=== PATIENT | male | born 1950 | race Caucasian/White ===

== ENCOUNTER 2016-07-25 11:50 | Day surgery (SDC) | payer OTHER, MEDICARE ==
--- NOTE | ~2016-07-25 | EGD ---
EGD REPORT [facility] [address] [address] NAME: LAUREL BUSTAMANTE : [birth year] STATUS : REG [place]#: [id number] AGE: 65 ADM/REG DATE : 07/25/16 MR#: [id number] REPORT SERV DATE: 07/25/16 DICTATED BY: KATE FISHER DATE: 07/25/16 REPORT STATUS : Draft [facility]ANS[facility]IBED BY: [facility] DATE: 07/25/16 Endoscopy Center Patient Name: Laurel Bustamante Date of : 1950 Attending MD: KATE FISHER MD Procedure Date No Time: 07/25/2016 Procedure: Upper GI endoscopy Indications: Epigastric abdominal pain, Iron deficiency anemia secondary to chronic blood loss, Melena Referring MD: Kellee ARCHER MD Medicines: Monitored Anesthesia Care Complications: No immediate complications. Procedure: Pre-Anesthesia Assessment: - ASA Grade Assessment: II - A patient with mild systemic disease. After obtaining informed consent, the endoscope was passed under direct vision. Throughout the procedure, the patient's blood pressure, pulse, and oxygen saturations were monitored continuously. The GIF [id number] was introduced through the mouth, and advanced to the jejunum. The upper GI endoscopy was accomplished without difficulty. The patient tolerated the procedure well. Findings: The examined esophagus was normal. S/P gastric bypass Few non-bleeding gastric ulcers were found at the anastomosis. The largest lesion was 7 mm in largest dimension. Biopsies were taken with a cold forceps for histology. The examined jejunum was normal. Impression: - Normal esophagus. - Gastric ulcers with clean base. Biopsied. - Normal examined jejunum. Recommendation: - Patient has a contact number available for emergencies. The signs and symptoms of potential delayed complications were discussed with the patient. Return to normal activities tomorrow. Written discharge instructions were provided to the patient. - Regular diet. - Use Prilosec (omeprazole) 20 mg PO BID.Prescription was written. - Return to GI clinic in 2 months. EGD REPORT [address] [address] NAME: LAUREL BUSTAMANTE : [birth year] STATUS : REG [place]#: [id number] AGE: 65 ADM/REG DATE : 07/25/16 MR#: [id number] REPORT SERV DATE: 07/25/16 DICTATED BY: KATE FISHER DATE: 07/25/16 REPORT STATUS : Draft TRANSCRIBED BY: [employer] DATE: 07/25/16 Procedure Code(s): --- Professional --- 14800, Esophagogastroduodenoscopy, flexible, transoral; with biopsy, single or multiple Diagnosis Code(s): --- Professional --- K25.9, Gastric ulcer, unspecified as acute or chronic, without hemorrhage or perforation R10.13, Epigastric pain D50.0, Iron deficiency anemia secondary to blood loss (chronic) K92.1, Melena CPT copyright 2013 [employer]. All rights reserved. The codes documented in this report are preliminary and upon lens block gauger review may be revised to meet current compliance requirements. KATE FISHER MD 07/25/2016 2:42 PM This report has been signed electronically. Number of Addenda: 0 Note Initiated On: 07/25/2016 2:16 PM Scope Withdrawal Time 0 hours 0 minutes [address] [place] [id number]
[~2016-07-25 11:50] MED LIST: C5 PO; CYMBALTA60 PO; FLOMAX4 PO; GLUCPH PO; LAMICTAL200 MG PO; LOP25 PO; MINOCIN100 PO; NEUR300 PO; PCET PO; PROPECIA1 MG PO; SEROQUEL300 MG PO; TRAZ100 PO; WELLXL150 PO; ZOCOR40 PO; ZYRTEC ALLGY10 MG PO
== END 2016-07-25 23:59 | disposition home or self-care (01) ==
LOC: DMU 11:50
PROVIDERS: Internal Medicine Gastroenterology
PROC: 0DB68ZX Excision of Stomach, Via Natural or Artificial Opening Endoscopic, Diagnostic (ICD-10-PCS; principal; 2016-07-25 13:30)
DX: K29.50 Unspecified chronic gastritis without bleeding (principal); K25.9 Gastric ulcer, unspecified as acute or chronic, without hemorrhage or perforation; D50.0 Iron deficiency anemia secondary to blood loss (chronic); I10 Essential (primary) hypertension; F41.9 Anxiety disorder, unspecified; F32.9 Major depressive disorder, single episode, unspecified; E78.5 Hyperlipidemia, unspecified
CPT/HCPCS: 88305; 88342; J2250